=== PATIENT | male | born 1985 ===

== ENCOUNTER → 2021-12-15 15:31 | Emergency (ER) ==
[2022-01-12 20:07] LABS: ESTIMATED GFR 114 mL/min (>60)
== END | disposition home or self-care (01) ==
LOC: JD.ED 15:31
DX: R10.84 Generalized abdominal pain (principal)
CPT/HCPCS: 36415; 71045; 71045-26; 74176; 74176-26; 80053; 81003; 83690; 84484; 85025; 85610; 85730; 93005; 96360; 96361; 99284